=== PATIENT | female | born 1935 | race African-American/Black ===

== ENCOUNTER → 2016-08-03 | Outpatient (CLI) | payer MEDICARE, OTHER ==
[2016-04-23 11:00] VITALS: BP 113/41
[~2016-08-03] MED LIST: ACET-704 PO; CALC-112 PO; CALC-98 PO; CALC1TAB75 PO; CIPR250T30 PO; CIPR500T94 PO; FERR325T31 PO; HYDR-2666 PO; INSU100C SQ; INSU100I13 SQ; INSU100V SQ; LISI40TA PO; METF850T2 PO; SIMV10TA PO; TRAM50TA PO; UBID100C12 PO
[2016-08-03 14:32] LABS: BASO # 0.1 x10^3/uL (0.0-0.2); BASO % 1 % (0-3); EOS % 0 % (0-3); HEMATOCRIT 38.5 % (36.0-47.0); HEMOGLOBIN 12.5 g/dL (12.0-15.5); LYMPH # 0.9 x10^3/uL (1.0-4.8); LYMPH % 8 % (24-48); MEAN CORPUSCULAR HEMOGLOBIN 28 pg (25-35); MEAN CORPUSCULAR HGB CONC 32 g/dL (31-37); MEAN CORPUSCULAR VOLUME 86 fL (79-100); MONO % 3 % (0-9); NEUT % 89 % (31-73); PLATELET COUNT 278 x10^3/uL (140-400); RED BLOOD COUNT 4.49 x10^6/uL (3.50-5.40); RED CELL DISTRIBUTION WIDTH 14.9 % (11.5-14.5); WHITE BLOOD COUNT 12.2 x10^3/uL (4.0-11.0)
[2016-08-03 14:33] LABS: BILIRUBIN,URINE NEGATIVE (NEG); GLUCOSE,URINE NEGATIVE (NEG); NITRITE,URINE NEGATIVE (NEG); PROTEIN,URINE NEGATIVE (NEG-TRACE); UROBILINOGEN,URINE 0.2 mg/dL (0.2 mg/dL)
[2016-08-03 14:41] LABS: BACTERIA,URINE 0 /HPF (0-FEW); RBC,URINE RARE /HPF (0-2); SQUAMOUS EPITHELIAL CELL,UR FEW /LPF; WBC,URINE OCC /HPF (0-4)
[2016-08-03 14:55] LABS: CALCIUM 9.5 mg/dL (8.5-10.1); CREATININE 1.3 mg/dL (0.6-1.0); GFR 47.3
[2016-08-03 14:56] LABS: PLT ESTIMATE ADEQUATE (ADEQUATE); TOXIC GRANULATION MOD
== END | disposition home or self-care (01) ==
LOC: SURGPAT 13:20
PROVIDERS: ATTEND Urology
DX: Z01.812 Encounter for preprocedural laboratory examination (principal); C67.9 Malignant neoplasm of bladder, unspecified
CPT/HCPCS: 36415; 80048; 81001; 83036; 85007; 85027; 87086

== ENCOUNTER 2016-08-10 09:56 | Observation (INO) | payer MEDICARE, OTHER ==
[2016-08-10] VITALS (11 sets, daily range): BP systolic 96–179; BP diastolic 56–94
[~2016-08-10] VITALS: Ht 149.9 cm; Wt 83.0 kg
--- NOTE | 2016-08-10 01:55 | PREOP HP ---
DATE OF SERVICE: The patient is scheduled for surgery tomorrow morning 08/10/2016. CHIEF COMPLAINT: Superficial bladder cancer. HISTORY OF PRESENT ILLNESS: This is an 81-year-old -Gabonese female with a history of multifocal superficial bladder cancer. She has undergone previous transurethral resection of bladder tumors and bladder biopsies. She recently completed a booster series of BCG treatments. She presents today for cystoscopy, bladder biopsies, possible TUR bladder tumors. PAST MEDICAL HISTORY: The patient is a type 2 diabetic, she has a history of kidney stones. There is a history of breast cancer. PAST SURGICAL HISTORY: Includes mastectomy in 2008. She has had a nephrostomy tube placed temporarily in the past. She has had transurethral resection of bladder tumors and bladder biopsies. MEDICATIONS: Include insulin, metformin, lisinopril, Zocor, ferrous sulfate, calcium tablets. SOCIAL HISTORY: The patient is and retired with her . She denies a history of smoking. ALLERGIES: No known drug allergies. PHYSICAL EXAMINATION: GENERAL DESCRIPTION: An 81-year-old female. She is alert and oriented. She denies any pain or discomfort. LUNGS: Clear to auscultation bilaterally. ABDOMEN: Soft and nontender. Negative for flank pain to palpation bilaterally. There are no palpable abdominal masses. She denies suprapubic tenderness. EXTREMITIES: Good range of motion. Negative for cyanosis or edema. IMPRESSION: 1. Superficial bladder cancer. 2. Type 2 diabetes. PLAN: The patient was scheduled for cystoscopy, bladder biopsies, possible TUR bladder tumor under general anesthesia. DANGELO BANKS DO DR: JEROME/patricia JOB#: [id number] / [id number]
[~2016-08-10 09:56] MED LIST changes: +CEFTRIAXONE 1GM IVPB FOR OMNI 50 ML IV PRN; +FENTANYL PF 100 MCG/2 ML VIAL. IV PRN; +HYDROMORPHONE 2 MG/ML VIAL. IV PRN; +IV RINGERS,LACTATED 1000ML 1,000 ML IV SCH; +LIDOCAINE 1% 1 ML SYRINGE. ID PRN; +MORPHINE SULFATE 2 MG/ML DISP.SYRIN. IV PRN; +ONDANSETRON PF 4 MG/2 ML VIAL. IV PRN; +PROCHLORPERAZINE 10 MG/2 ML VIAL. IV PRN
[2016-08-10] MEDS ORDERED: DESFLURANE 61 TO 120 MINUTES IH ONE (10:37)
[2016-08-10] MEDS ORDERED: ONDANSETRON PF 4 MG/2 ML VIAL. ONE (10:38)
[2016-08-10] MEDS ORDERED: DEXAMETHASONE SOD PHOS 20 MG/5 ML VIAL. ONE (10:38)
[2016-08-10] MEDS ORDERED: PROPOFOL 20 ML IV ONE (10:38)
[2016-08-10] MEDS ORDERED: LIDOCAINE 2% 100 MG/5 ML DISP.SYRIN. ONE (10:38)
[2016-08-10] MEDS ORDERED: FENTANYL PF 100 MCG/2 ML VIAL. ONE (10:38)
[2016-08-10] MEDS ORDERED: IV NORMAL SALINE 1000ML BAG 1,000 ML IV SCH (11:30)
[2016-08-10] MEDS ORDERED: PHENYLEPHRINE in 0.9% NACL PF 1 MG/10 ML DISP.SYRIN. IV ONE (11:31)
--- NOTE | 2016-08-10 12:27 | PDOC ---
BRIEF OPERATIVE NOTE Date: Aug 10, 2016 Pre-Op Diagnosis Multifocal Superficial Bladder Cancer Post-Op Diagnosis Same Procedure Performed Cystoscopy placement of temporary right ureteral stent, Fulguration medium bladder tumor, Multiple bladder biopsies, removal of ureteral stent Surgeon Anil Anesthesia Type: General Blood Loss Minimal Specimens Obtained Bladder biopsies sent to Path Findings Mutifocal bladder tumors, one surrounding Right ureteral orifice Complications None Additional Remarks Will keep overnight so Mitomycin can be ordered for Mitomycin bladder treatment in AM before discharge DANGELO BANKS DO Aug 10, 2016 12:27
[2016-08-10] MEDS ORDERED: ACETAMINOPHEN 325 MG TABLET. PO PRN (12:30)
[2016-08-10] MEDS ORDERED: 0.9 % SODIUM CHLORIDE 10 ML DISP.SYRIN. IV PRN (12:30)
[2016-08-10] MEDS ORDERED: NALOXONE 0.4 MG/ML VIAL. IV PRN (12:30)
[2016-08-10] MEDS ORDERED: MAG HYDROX/AL HYDROX/SIMETH 30 ML ORAL.SUSP PO PRN (12:30)
[2016-08-10] MEDS ORDERED: MAGNESIUM HYDROXIDE 2,400 MG/30 ML ORAL.SUSP. PO PRN (12:30)
[2016-08-10] MEDS ORDERED: ONDANSETRON PF 4 MG/2 ML VIAL. IV PRN (12:30)
[2016-08-10] MEDS ORDERED: HYDROCODONE/APAP 5/325MG TABLET. PO PRN (12:30)
--- NOTE | 2016-08-10 12:47 | OP ---
DATE OF SURGERY: 08/10/2016 PREOPERATIVE DIAGNOSIS: Multifocal superficial bladder cancer. POSTOPERATIVE DIAGNOSIS: Multifocal superficial bladder cancer. PROCEDURE: Cystoscopy, fulguration of medium bladder tumor, cystoscopy, multiple bladder biopsies, placement of temporary right ureteral stent. SURGEON: Dangelo Banks DO ANESTHESIA: General. INDICATIONS AND JUDGMENT: This is an 81-year-old female with a history of multifocal superficial bladder cancer. She has had recent BCG bladder treatments, a total of 3. She presents today for cystoscopy to evaluate her bladder, possible biopsies, possible fulguration of bladder tumors. This was explained to the patient. She appears to understand and was agreeable. DESCRIPTION OF PROCEDURE: The patient was preloaded with a gram of Rocephin. She was taken to the operating room and placed on the operating room table in a supine position, given a general anesthetic and then placed in a dorsolithotomy position using Binh stirrups since we do not have a cystoscopy table. Rigid cystoscopy was performed. The bladder was examined with a 30-degree and 70-degree lens. The patient was found to have a medium bladder tumor surrounding the right ureteral orifice and in fact made it difficult to see the right ureteral orifice. She another medium bladder tumor at the 3 o'clock position just inside the bladder neck, which was hard to visualize. She then had 2 smaller papillary bladder tumors on the dome of the bladder. The dome of the bladder had hemorrhagic type of appearance. Therefore, it was decided to place a temporary right ureteral stent up the right ureteral orifice to protect the orifice during the fulguration of this bladder tumor and it was done successfully. Following that, I inserted a 24-Venezuelan resectoscope sheath and the resectoscope fitted with a rollerball electrode. The tumors surrounding the right ureteral orifice was then completely fulgurated with careful attention not to harm the right ureteral orifice. Attention was then directed to the tumor that was just inside the bladder neck at the 3 o'clock position. This was very hard to reach, but it was fulgurated with the rollerball electrode as well. Following that, there were 2 papillary type tumors on the dome of the bladder and these were fulgurated completely. I then switched to the rigid cystoscope with the flexible biopsy forceps and I took biopsies, particularly in the area of the dome of the bladder where the bladder mucosa appeared to be irritated and also biopsied some of the sites of the bladder tumors were identified. A total of 4, possibly 5 biopsies were taken. Following these biopsies, the bladder mucosa was fulgurated for hemostasis. At this point, I removed the right temporary ureteral stent. Hemostasis was satisfactory. The scope was removed. I then placed a 20-Venezuelan Choe catheter into the bladder, 10 mL balloon was filled and this was connected to dependent drainage bag. The patient tolerated the procedure well and was sent to recovery room in satisfactory condition. Once in the recovery room, I called the Pharmacy to see if they had some mitomycin that I could put into the bladder in recovery room. They did not have any on hand, therefore, I will place the patient in observation bed overnight. They will order the mitomycin and I will put it in her bladder tomorrow and remove the catheter prior to her discharge tomorrow. DANGELO BANKS DO DR: JEROME/patricia JOB#: [id number] / [id number]
[2016-08-10] MEDS: IV 1/2 NORMAL SALINE 1,000 ML IV SCH (13:46)
[2016-08-10] MEDS ORDERED: TRAMADOL 50 MG TABLET. PO PRN (16:00)
[2016-08-10] MEDS: INSULIN ASPART 300 UNITS/3 ML INSULN.PEN SQ SCH (16:30)
[2016-08-10] MEDS ORDERED: INSULIN ASPART 300 UNITS/3 ML INSULN.PEN SQ SCH (17:00)
[2016-08-10] MEDS: CALCIUM CARB/VIT D3 500/200 TABLET PO SCH (18:07)
[2016-08-10] MEDS: FERROUS SULFATE 325 MG TABLET PO SCH (18:07)
[2016-08-10] MEDS ORDERED: INSULIN DETEMIR 300 UNITS/3 ML INSULN.PEN. SQ SCH (21:00)
[2016-08-10] MEDS ORDERED: SIMVASTATIN 10 MG TABLET PO SCH (21:00)
[2016-08-11] MEDS: IV 1/2 NORMAL SALINE 1,000 ML IV SCH (01:36)
[2016-08-11 03:03] VITALS: BP 135/43
[2016-08-11 07:00] VITALS: BP 143/70
[2016-08-11] MEDS ORDERED: NON FORMULARY ITEM IRR ONE (08:00)
[2016-08-11] MEDS: FERROUS SULFATE 325 MG TABLET PO SCH (08:24)
[2016-08-11] MEDS: CALCIUM CARB/VIT D3 500/200 TABLET PO SCH (08:24)
[2016-08-11] MEDS: INSULIN ASPART 300 UNITS/3 ML INSULN.PEN SQ SCH (08:32)
[2016-08-11] MEDS ORDERED: MITOMYCIN IV ONE (09:00)
[2016-08-11] MEDS ORDERED: UBIDECARENONE 50 MG CAPSULE. PO SCH (09:00)
[2016-08-11] MEDS ORDERED: LISINOPRIL 40 MG TABLET. PO SCH (09:00)
[2016-08-11] MEDS ORDERED: NORMAL SALINE IV ONE (09:00)
[2016-08-11 10:58] VITALS: BP 139/59
--- NOTE | 2016-08-11 13:12 | DISCH ---
DISCHARGE INSTRUCTIONS Condition on Discharge Condition on Discharge: Stable Activity After Discharge Activity Instructions for Disc: Resume previous activity Diet after Discharge Diet after Discharge: Regular Contacting the DRDedra after DC Call your doctor for: Concerns you may have Follow-Up Follow up with: Dr. Banks in 4 weeks DANGELO BANKS DO Aug 11, 2016 13:11
--- NOTE | 2016-08-11 13:15 | PDOC ---
Provider Note Provider Note Urology: Mitomycin bladder treatment given. Discharge summary dictated. Plan: Home today DANGELO BANKS DO Aug 11, 2016 13:15
[2016-08-11] MEDS ORDERED: INSULIN ASPART 300 UNITS/3 ML INSULN.PEN SQ ONE (13:45)
--- NOTE | 2016-08-11 14:26 | PATHOLOGY ---
PATHOLOGY REPORT * * * * * * * * FINAL DIAGNOSIS: Bladder tumor: PAPILLARY LOW GRADE UROTHELIAL CARCINOMA. SEE COMMENT. COMMENT: Sections of the bladder tumor reveal a papillary low grade urothelial carcinoma showing focal coagulation artifact. There is focal chronic inflammation. There is focal smooth muscle present. There is no evidence of invasive carcinoma. The case is also examined by Dr. Justina Holman, who concurs with the diagnosis. (JPM:all; d/t: 08/11/2016) REPORT ELECTRONICALLY SIGNED BY: Ajith Swanson M.D. DATE/TIME: 08/11/2016 14:26 * * * * * * * * GROSS PATHOLOGY: The specimen is received in formalin labeled "Mary Acuña, bladder tumor". Received are multiple segments of pink-pierson soft tissue measuring 0.9 x 0.7 x 0.1 cm in aggregate dimensions. The specimen is filtered and entirely submitted in cassette A1. (CAA; 08/10/2016) INITIAL CPT CODE(S): 36801 Professional services [place] [address] Technical services performed by [facility] at [address] [place] [address] [address] [address]. SPECIMEN(S) RECEIVED: A.Bladder tumor CLINICAL HISTORY: Superficial bladder cancer PATIENT: MARY ACUÑA /AGE: 702/07/1935 (Age: 81) PATIENT #: [id number] ALT CASE #: SPECIMEN COLLECTION DATE: 08/10/2016 SPECIMEN RECEIVED DATE: 08/10/2016 [facility] - [address] [place] [address] - PHONE: [phone] * * * END OF REPORT * * *
--- NOTE | 2016-08-11 21:42 | DS ---
DATE OF DISCHARGE: 08/11/2016 FINAL DIAGNOSIS: Bladder cancer. OPERATIONS AND PROCEDURES: 1. Cystoscopy, resection of bladder tumor (medium), multiple bladder biopsies, temporary right ureteral stent placement. 2. Mitomycin bladder instillation on 08/11/2016. This is summary of the patient's hospital course: A well-documented history and physical can be found in the body of the chart. This 81-year-old female has history of multifocal superficial bladder cancer. She was brought to the outpatient surgery on 08/10/2016, underwent cystoscopy under anesthesia. She was found to have some recurrent tumors, therefore these tumors were fulgurated and multiple bladder biopsies were taken. A temporary indwelling right ureteral stent was placed at that time to protect the right ureteral orifice that was removed at the conclusion of the procedure. Following her procedure, she was placed in observation bed overnight with the Choe catheter due to some hematuria. The following morning, on 08/11/2016 the patient's urine color was sultana. I then gave her mitomycin bladder treatment consisting of 40 mg of mitomycin and 40 mL of saline that was administered via the bladder and then the catheter was removed. She was instructed to hold the medication in the bladder for 2 hours. The patient was discharged in satisfactory condition. She was given discharge instructions with respect to diet and activity. She was given a prescription for Cipro antibiotics. She can continue her home medications. She was told to follow up with me in 4 weeks in the office. Her condition upon discharge was satisfactory. DANGELO BANKS DO DR: Amy JOB#: [id number] / [id number]
== END 2016-08-11 14:05 | disposition home or self-care (01) ==
LOC: SURG 09:56 → 4 NORTH 13:30
PROVIDERS: ADMIT Urology; ATTEND Urology
DX: C67.9 Malignant neoplasm of bladder, unspecified (principal); E11.9 Type 2 diabetes mellitus without complications; Z85.3 Personal history of malignant neoplasm of breast
CPT/HCPCS: 52204; 52214; 82947; 88305; 96361; 96365; 96372; C2617; G0378; G0379; J0690; J1815; J2370; J2405; J2704; J3010; J9280; J1100

== ENCOUNTER 2016-11-16 06:13 | Observation (INO) | payer MEDICARE, OTHER ==
[2016-11-16] VITALS (10 sets, daily range): BP systolic 136–163; BP diastolic 52–78
[~2016-11-16] VITALS: Ht 149.9 cm; Wt 76.7 kg
[~2016-11-16 06:13] MED LIST changes: -FENTANYL PF 100 MCG/2 ML VIAL. IV PRN; -HYDROMORPHONE 2 MG/ML VIAL. IV PRN; -IV RINGERS,LACTATED 1000ML 1,000 ML IV SCH; -LIDOCAINE 1% 1 ML SYRINGE. ID PRN; -MORPHINE SULFATE 2 MG/ML DISP.SYRIN. IV PRN; -ONDANSETRON PF 4 MG/2 ML VIAL. IV PRN; -PROCHLORPERAZINE 10 MG/2 ML VIAL. IV PRN
[2016-11-16] MEDS ORDERED: MORPHINE SULFATE 2 MG/ML DISP.SYRIN. IV PRN (07:00)
[2016-11-16] MEDS ORDERED: HYDROMORPHONE 2 MG/ML VIAL. IV PRN (07:00)
[2016-11-16] MEDS ORDERED: IV NORMAL SALINE 1000ML BAG 1,000 ML IV SCH (07:00)
[2016-11-16] MEDS ORDERED: LIDOCAINE 1% 1 ML SYRINGE. ID PRN (07:00)
[2016-11-16] MEDS ORDERED: ONDANSETRON PF 4 MG/2 ML VIAL. IV PRN ×2 (07:00→09:45)
[2016-11-16] MEDS ORDERED: FENTANYL PF 100 MCG/2 ML VIAL. IV PRN ×2 (07:00)
[2016-11-16] MEDS ORDERED: IV RINGERS,LACTATED 1000ML 1,000 ML IV SCH (07:00)
[2016-11-16] MEDS ORDERED: PROCHLORPERAZINE 10 MG/2 ML VIAL. IV PRN (07:00)
[2016-11-16] MEDS ORDERED: IOHEXOL 300 MG/ML 50 ML VIAL. ONE (07:28)
[2016-11-16] MEDS ORDERED: DEXAMETHASONE SOD PHOS 20 MG/5 ML VIAL. ONE (07:45)
[2016-11-16] MEDS ORDERED: ONDANSETRON PF 4 MG/2 ML VIAL. ONE (07:45)
[2016-11-16] MEDS ORDERED: SEVOFLURANE 31 TO 60 MINUTES. IH ONE (07:45)
[2016-11-16] MEDS ORDERED: PROPOFOL 20 ML IV ONE (07:45)
[2016-11-16 07:46] LABS: BASO # 0.1 x10^3/uL (0.0-0.2); BASO % 1 % (0-3); EOS % 2 % (0-3); HEMATOCRIT 37.8 % (36.0-47.0); HEMOGLOBIN 12.2 g/dL (12.0-15.5); LYMPH # 1.8 x10^3/uL (1.0-4.8); LYMPH % 23 % (24-48); MEAN CORPUSCULAR HEMOGLOBIN 28 pg (25-35); MEAN CORPUSCULAR HGB CONC 32 g/dL (31-37); MEAN CORPUSCULAR VOLUME 87 fL (79-100); MONO % 8 % (0-9); NEUT % 66 % (31-73); PLATELET COUNT 234 x10^3/uL (140-400); RED BLOOD COUNT 4.35 x10^6/uL (3.50-5.40); RED CELL DISTRIBUTION WIDTH 15.2 % (11.5-14.5); WHITE BLOOD COUNT 8.1 x10^3/uL (4.0-11.0)
[2016-11-16] MEDS ORDERED: FENTANYL PF 100 MCG/2 ML VIAL. ONE (07:46)
[2016-11-16 07:49] LABS: CALCIUM 9.4 mg/dL (8.5-10.1); CREATININE 1.2 mg/dL (0.6-1.0); GFR 51.9; POTASSIUM 4.1 mmol/L (3.5-5.1)
[2016-11-16] MEDS ORDERED: LIDOCAINE 2% 100 MG/5 ML DISP.SYRIN. ONE (07:50)
[2016-11-16 08:06] LABS: PROTHROMBIN TIME PATIENT 12.3 SEC (11.7-14.0)
[2016-11-16] MEDS ORDERED: PHENYLEPHRINE in 0.9% NACL PF 1 MG/10 ML DISP.SYRIN. IV ONE (08:39)
[2016-11-16] MEDS ORDERED: DIPHENHYDRAMINE HCL 25 MG CAPSULE PO PRN (09:45)
[2016-11-16] MEDS ORDERED: NALOXONE 0.4 MG/ML VIAL. IV PRN (09:45)
[2016-11-16] MEDS ORDERED: MAG HYDROX/ALUMINUM HYD/SIMETH 30 ML ORAL.SUSP PO PRN (09:45)
[2016-11-16] MEDS ORDERED: HYDROCODONE/APAP 5/325MG TABLET. PO PRN (09:45)
[2016-11-16] MEDS ORDERED: MAGNESIUM HYDROXIDE 2,400 MG/30 ML ORAL.SUSP. PO PRN (09:45)
[2016-11-16] MEDS ORDERED: TRAMADOL 50 MG TABLET. PO PRN (09:45)
[2016-11-16] MEDS ORDERED: ACETAMINOPHEN 325 MG TABLET. PO PRN (09:45)
[2016-11-16] MEDS ORDERED: 0.9 % SODIUM CHLORIDE 10 ML DISP.SYRIN. IV PRN (09:45)
--- NOTE | 2016-11-16 09:52 | PDOC ---
BRIEF OPERATIVE NOTE Date: Nov 16, 2016 Pre-Op Diagnosis Bladder Cancer Post-Op Diagnosis recurrent bladder cancer Procedure Performed TUR-Multiple bladder tumors temporary bilateral ureteral stents Surgeon Anil Anesthesia Type: General Blood Loss 100cc Specimens Obtained bladder tumors, bladder bx's sent to Path Findings recurrent bladder tumors Additional Remarks tolerated well, griffith in place DANGELO BANKS DO Nov 16, 2016 09:52
[2016-11-16] MEDS: IV NORMAL SALINE 1000ML BAG 1,000 ML IV SCH (12:00)
[2016-11-16] MEDS: LEVOFLOXACIN 250 MG TABLET. PO SCH (12:06)
[2016-11-16] MEDS: INSULIN ASPART 300 UNITS/3 ML INSULN.PEN SQ SCH (12:14)
[2016-11-16 13:04] LABS: BILIRUBIN,URINE NEGATIVE (NEG); GLUCOSE,URINE NEGATIVE (NEG); NITRITE,URINE NEGATIVE (NEG); PROTEIN,URINE NEGATIVE (NEG-TRACE); UROBILINOGEN,URINE 0.2 mg/dL (0.2 mg/dL)
--- NOTE | 2016-11-16 13:05 | OP ---
DATE OF SURGERY: 11/16/2016 PREOPERATIVE DIAGNOSES: Intermittent gross hematuria, superficial bladder cancer. POSTOPERATIVE DIAGNOSES: Superficial bladder cancer, multiple recurrent bladder tumors. PROCEDURES: Cystoscopy, placement of temperature ureteral stents, transurethral resection of multiple medium size bladder tumors, bladder biopsies. SURGEON: Dangelo Banks D.O. ANESTHESIA: General. ESTIMATED BLOOD LOSS: 100 mL. DRAINS: A 20-Sinhala Choe catheter to dependent drainage bag. INDICATIONS AND JUDGMENT: This is an 81-year-old -Bangladeshi female with a history of multiple superficial bladder cancer, tumors. She has had previous BCG bladder treatments. More recently, she developed some intermittent gross hematuria; therefore, it was felt that she should be brought to the operating room to undergo cystoscopy to rule out recurrent bladder tumors. This was explained to the patient. She appeared to understand and was agreeable. DESCRIPTION OF PROCEDURE: The patient was preloaded with IV antibiotics and taken to the operating room and placed on the operating room table in a supine position, given a general anesthetic and then placed in a dorsolithotomy position using Binh stirrups, since we do not have a cystoscopy table. Rigid cystoscopy was performed. The patient was found to have multiple recurrent bladder tumors. One of these tumors obscured the right ureteral orifice. The left ureteral orifice was identified without difficulty. I then used 5-Sinhala whistle-tip catheters and placed one at the left ureteral orifice and I was able to locate the right ureteral orifice amongst the bladder tumor and advanced this up the right ureteral orifice to protect that orifice. I then began to resect the bladder tumors; these were located on the floor of the bladder. There was some on the dome of the bladder. Some located on the left lateral wall of the bladder and some at the left bladder neck and a couple on the anterior bladder wall. These were carefully resected using the resectoscope loop, and these were sent as specimens to pathology labelled bladder tumor. I suspect that I resected at least 8 of these tumors. Following this, I did some multiple random bladder biopsies in areas that were affected by bladder tumor and these were sent separately in a container to pathology. I then obtained hemostasis using a rollerball electrode connected to the [employer] resectoscope and cauterized. These areas have been biopsied and resected. Bleeding appeared to be controlled. I then removed the ureteral stents. The instruments were removed. I placed a 2-way 20-Sinhala Choe catheter into the bladder. A 10 mL balloon was filled and this was connected to a dependent drainage bag. It appears that the BCG bladder instillations have not been as effective as they want to were. I suspect that we will have to change our therapy in the future. We will await the results of the pathology report. The patient sent to recovery room in satisfactory condition. We will keep her overnight observation bed. DANGELO BANKS DO DR: JEROME/patricia JOB#: [id number] / [id number]
[2016-11-16 13:29] LABS: BACTERIA,URINE MANY /HPF (0-FEW); RBC,URINE >40 /HPF (0-2); SQUAMOUS EPITHELIAL CELL,UR MOD /LPF; WBC,URINE 20-40 /HPF (0-4)
[2016-11-16] MEDS ORDERED: INSULIN ASPART 300 UNITS/3 ML INSULN.PEN SQ SCH (17:00)
[2016-11-16] MEDS: FERROUS SULFATE 325 MG TABLET. PO SCH (17:14)
[2016-11-16] MEDS ORDERED: SIMVASTATIN 10 MG TABLET PO SCH (21:00)
[2016-11-16] MEDS ORDERED: INSULIN DETEMIR 300 UNITS/3 ML INSULN.PEN. SQ SCH (21:00)
[2016-11-16] MEDS: SENNOSIDES/DOCUSATE 8.6/50MG TABLET. PO SCH (21:15)
[2016-11-17] MEDS: IV NORMAL SALINE 1000ML BAG 1,000 ML IV SCH (01:20)
[2016-11-17 03:00] VITALS: BP 129/56
[2016-11-17 04:32] LABS: BASO % 0 % (0-3); EOS % 0 % (0-3); HEMATOCRIT 35.8 % (36.0-47.0); HEMOGLOBIN 11.3 g/dL (12.0-15.5); LYMPH # 1.6 x10^3/uL (1.0-4.8); LYMPH % 14 % (24-48); MEAN CORPUSCULAR HEMOGLOBIN 27 pg (25-35); MEAN CORPUSCULAR HGB CONC 32 g/dL (31-37); MEAN CORPUSCULAR VOLUME 87 fL (79-100); MONO % 7 % (0-9); NEUT % 79 % (31-73); PLATELET COUNT 231 x10^3/uL (140-400); RED BLOOD COUNT 4.12 x10^6/uL (3.50-5.40); RED CELL DISTRIBUTION WIDTH 14.9 % (11.5-14.5); WHITE BLOOD COUNT 11.5 x10^3/uL (4.0-11.0)
[2016-11-17 04:48] LABS: CALCIUM 9.2 mg/dL (8.5-10.1); CREATININE 1.1 mg/dL (0.6-1.0); GFR 57.4; POTASSIUM 3.9 mmol/L (3.5-5.1)
[2016-11-17] MEDS: LEVOFLOXACIN 250 MG TABLET. PO SCH (06:02)
[2016-11-17 07:00] VITALS: BP 138/56
[2016-11-17] MEDS ORDERED: LISINOPRIL 40 MG TABLET. PO SCH (07:00)
[2016-11-17] MEDS: FERROUS SULFATE 325 MG TABLET. PO SCH (08:38)
[2016-11-17] MEDS: SENNOSIDES/DOCUSATE 8.6/50MG TABLET. PO SCH (08:38)
[2016-11-17] MEDS: INSULIN ASPART 300 UNITS/3 ML INSULN.PEN SQ SCH ×2 (08:42→12:05)
[2016-11-17] MEDS ORDERED: NON FORMULARY ITEM (Ubidecarenone (Co Q-10) 100 MG) PO SCH (09:00)
[2016-11-17] MEDS ORDERED: MITOMYCIN IRR ONE ×3 (10:00)
[2016-11-17] MEDS ORDERED: TOTAL VOLUME IRR ONE ×3 (10:00)
[2016-11-17] MEDS ORDERED: STERILE WATER FOR IRRIGATION IRR ONE ×3 (10:00)
[2016-11-17 10:32] VITALS: BP 150/67
--- NOTE | 2016-11-17 13:41 | PDOC ---
Provider Note Provider Note Urology: Urine clear Procedure: Mitomycin 40mg in 50cc saline given intravesicle via griffith catheter and catheter removed patient instructed to hold in bladder for 2hrs and then void Tolerated well. DANGELO BANKS DO Nov 17, 2016 13:41
--- NOTE | 2016-11-17 13:42 | DISCH ---
DISCHARGE INSTRUCTIONS Condition on Discharge Condition on Discharge: Stable Activity After Discharge Activity Instructions for Disc: Resume previous activity Diet after Discharge Diet after Discharge: Regular Contacting the after DC Call your doctor for: Concerns you may have Follow-Up Follow up with: Dr Banks will call you with Path report and f/u appointment date DANGELO BNAKS DO Nov 17, 2016 13:42
[2016-11-17 15:10] VITALS: BP 129/60
--- NOTE | 2016-11-17 23:16 | DS ---
DATE OF DISCHARGE: 11/17/2016 FINAL DIAGNOSIS: Bladder cancer. SECONDARY DIAGNOSIS: Diabetes mellitus. This is a summary of the patient's hospital course. Well documented history and physical can be found in the body of the chart. 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 Recently, she had developed some intermittent gross hematuria. Therefore, it was felt that she should be brought to surgery for cystoscopy, bladder biopsies and possible TUR bladder tumors. This was explained to the patient, she appeared to understand and was agreeable. The patient was brought to the hospital on 11/16/2016. She underwent general anesthesia. Cystoscopy was performed. The patient was found to have multiple bladder tumors, medium in size. One of the tumors obscured the right ureteral orifice. Prior to resecting these tumors and bladder biopsies, I advanced 6-Kenyan ureteral catheters up both ureteral orifices to protect the orifices. Following that, I resected these medium bladder tumors, some of which were on the floor of the bladder, on the right wall of the bladder and on the dome of the bladder. I also cauterized the tumor that was around the right ureteral orifice. Bladder biopsies were taken as well. Once this had been completed and hemostasis was satisfactory, the instruments were removed and I left a 20 Kenyan Choe catheter in the bladder to dependent drainage bag. The patient was placed in observation bed following the procedure. Her overnight stay was uneventful. The following day, the urine was sultana in color. I gave her a mitomycin intravesical bladder treatment 40 mg and 50 mL of saline was administered via the catheter into the bladder and the catheter was removed. She was instructed to hold the medication in the bladder for 2 hours and then void. The patient was discharged on that same day, on 11/17/2016. She was given discharge instructions with respect to diet and activity. She was sent home with prescription for Cipro 500 mg p.o. b.i.d. for 3 days. I told the patient that I would call her when the pathology report was available and I will give her a followup appointment at that time. Her condition upon discharge is satisfactory. DANGELO BANKS DO DR: JEROME/patricia JOB#: [id number] / [id number]
--- NOTE | 2016-11-18 12:01 | PATHOLOGY ---
PATHOLOGY REPORT * * * * * * * * FINAL DIAGNOSIS: A. Bladder tumor, transurethral resection: - PAPILLARY LOW-GRADE UROTHELIAL CARCINOMA. SEE COMMENT. B. Bladder biopsies: - Focal fibrosis, chronic inflammation, foreign body giant cell reaction, and hemosiderin laden macrophages. COMMENT: Sections of the bladder tumor transurethral resection reveal a papillary low-grade urothelial carcinoma showing focal coagulation artifact. A few of the biopsy segments contain underlying lamina propria which focally appears fibrotic and chronically inflamed. There is no evidence of invasive carcinoma. No bladder muscular wall is present. Sections of the bladder biopsies reveal urothelium and underlying lamina propria. The urothelial lining is largely denuded. One of the biopsy segments shows prominent reactive fibrosis with chronic inflammation, focal foreign body giant cell reaction, and focal hemosiderin laden macrophages. There is no evidence of malignancy. The case is also examined by Dr. Justin Carcamo, who concurs with the diagnosis. (JPM:mgzena; d/t: 11/17/16) REPORT ELECTRONICALLY SIGNED BY: Ajith Swanson M.D. DATE/TIME: 11/18/2016 12:01 * * * * * * * * GROSS PATHOLOGY: A. The specimen is received in formalin labeled "Jhonatan Acuña, bladder tumor". Received are multiple segments of partially cauterized pink-pierson, friable soft tissue measuring 3.0 x 1.4 x 0.2 cm in aggregate dimensions. The specimen is filtered and entirely spent in cassette A1. B. Received in formalin labeled "Jhonatan Acuña, bladder biopsies," are three segments of pierson soft tissue measuring 0.7 x 0.6 x 0.1 cm in aggregate dimensions and ranging from 0.2 to 0.3 cm in maximum dimension. The specimen is submitted entirely in cassette B1. (CAA; 11/16/2016) INITIAL CPT CODE(S): B; 22078, 10365 Professional services performed by [facility] at [address] [address] Technical services performed by [facility] at [address] [place] [address], [address], [place] [address]. SPECIMEN(S) RECEIVED: A.Bladder tumor B.Bladder biopsies CLINICAL HISTORY: Superficial bladder cancer, hematuria PATIENT: JHONATAN ACUÑA /AGE: 702/07/1935 (Age: 81) PATIENT #: [id number] ALT CASE #: SPECIMEN COLLECTION DATE: 11/16/2016 SPECIMEN RECEIVED DATE: 11/16/2016 [facility] - [address] [place] [address] - PHONE: [phone] * * * END OF REPORT * * *
== END 2016-11-17 15:15 | disposition home or self-care (01) ==
LOC: SURG 06:13 → 4 NORTH 11:08
PROVIDERS: ADMIT Urology; ATTEND Urology
DX: C67.9 Malignant neoplasm of bladder, unspecified (principal); E11.9 Type 2 diabetes mellitus without complications
CPT/HCPCS: 36415; 52235; 80048; 81001; 82947; 85027; 85610; 85730; 87086; 88305; 96372; G0378; G0379; J0690; J1100; J1815; J2370; J2405; J2704; J3010; Q9967